=== PATIENT | female | born 2000 | race Caucasian/White ===

== ENCOUNTER 2019-12-11 21:33 | Emergency (ER) | payer OTHER ==
[~2019-12-11] VITALS: Ht 154.9 cm; Wt 60.6 kg
[2019-12-11 21:35] VITALS: Ht 154.9 cm; Wt 60.6 kg
[2019-12-12 00:30] VITALS: BP 94/55
== END 2019-12-12 00:50 | disposition home or self-care (01) ==
LOC: ED 21:33
DX: T78.40XA Allergy, unspecified, initial encounter (principal); Z91.018 Allergy to other foods; X58.XXXA Exposure to other specified factors, initial encounter
CPT/HCPCS: J0171; J1200; J2930; J3490